=== PATIENT | female | born 1965 | race Caucasian/White ===

== ENCOUNTER 2016-05-21 15:41 | Inpatient (IN) | payer OTHER ==
--- NOTE | ~2016-05-21 | CN ---
Consultation Report [facility] [address] [place]. [address] NAME: FLORENCIO FINK : 63 STATUS : ADM IN [facility]#: [id number] AGE: 50 ADM/REG DATE : 05/21/16 MR#: [id number] REPORT SERV DATE: 05/24/16 DICTATED BY: BROOKS CHAPMAN DATE: 05/24/16 REPORT STATUS : Draft TRANSCRIBED BY: MODL DATE: 05/24/16 CONSULTATION DATE OF CONSULTATION: 05/22/2016 REASON FOR CONSULTATION: Right hydronephrosis. HISTORY OF PRESENT ILLNESS: Mrs. Fink is a 50-year-old female with a history of appendiceal cancer, status post exploratory surgery in 2013. She underwent adjuvant chemotherapy for this as well. She was then found to have a large right-sided ovarian mass with fibroids. There were initial plans to undergo surgery at an outside facility. The patient was admitted to our hospital with nausea and vomiting. A repeat CT scan demonstrated this ovarian mass as well as right hydronephrosis. She is here to undergo a right ovarian biopsy in the near future, and I have been asked to consult given her hydronephrosis. She has a history of stones in the past. PAST MEDICAL HISTORY: Appendiceal cancer and nephrolithiasis. PAST SURGICAL HISTORY: Appendectomy and cholecystectomy. FAMILY HISTORY: Negative for GI or malignancies. SOCIAL HISTORY: No alcohol or drugs. She is a current smoker. ALLERGIES: SHE IS ALLERGIC TO PENICILLIN. MEDICATIONS: Reviewed and listed in the chart. REVIEW OF SYSTEMS: A 12-point review of systems was performed. Pertinent positives are listed in the HPI. PHYSICAL EXAMINATION: VITAL SIGNS: Temperature is 98.0, pulse 99, blood pressure is 157/81, saturating 100% on room air. GENERAL: She is in no acute distress. She appears her stated age. HEENT: Head is normocephalic and atraumatic. LUNGS: Breathing is nonlabored. She is not in respiratory distress. CARDIAC: Pulse is regular in rate and rhythm. ABDOMEN: Soft, nontender, nondistended. She has a mild right CVA tenderness, and she has no left CVA tenderness. : She has normal external genitalia. NEUROLOGIC: She is alert and oriented x3. LABORATORY DATA: Her white count is 6.7, hemoglobin 12.4, creatinine is 1.13. Urinalysis is Consultation Report [facility] [address] [place]. [address] NAME: FLORENCIO FINK : 63 STATUS : ADM IN PAT#: [id number] AGE: 50 ADM/REG DATE : 05/21/16 MR#: [id number] REPORT SERV DATE: 05/24/16 DICTATED BY: BROOKS CHAPMAN DATE: 05/24/16 REPORT STATUS : Draft TRANSCRIBED BY: YARA DATE: 05/24/16 negative for infection. IMAGING: CT scan of the abdomen and pelvis with contrast was personally reviewed and interpreted by myself. She has a large right ovarian mass. She has right hydronephrosis with a transition point above the ureter in the pelvis. ASSESSMENT AND PLAN: Ms. Fink has right hydronephrosis due to extrinsic compression from an ovarian mass. If this is an appendiceal tumor, she will likely need to have chemotherapy, in which case we will place a stent in order to protect her kidney during this time. If it is an ovarian primary and the plan is for resection, then we can address her hydronephrosis with either ureterolysis or reimplantation at the time of operation. Regardless, we will plan on placing a stent in the near future to protect her kidney while we work through what will be the best treatment strategy for this woman. Thank you for this consultation. CAROL/YARA Brooks Chapman MD / [id number] CC: MD Salazar Maya Patricia L
--- NOTE | ~2016-05-21 | CN ---
Consultation Report [facility] [address] [facility] [place]. [address] NAME: FLORENCIO FINK : 63 STATUS : ADM IN [facility]#: [id number] AGE: 50 ADM/REG DATE : 05/21/16 MR#: [id number] REPORT SERV DATE: 05/23/16 DICTATED BY: KRISTEN MARTINO DATE: 05/22/16 REPORT STATUS : Draft TRANSCRIBED BY: MODL DATE: 05/22/16 DATE OF CONSULTATION: 05/22/2016 REFERRING PHYSICIAN: Dr. Edson Alejandre. CONSULTING PHYSICIAN: Dr. Kristen Martino. CONSULT: Regarding abdominal pain, vomiting, possible small-bowel obstruction. HISTORY OF PRESENT ILLNESS: This is a 50-year-old female who underwent a right hemicolectomy by Dr. Martino in 09/2013 for an appendiceal carcinoma. Apparently, also she subsequently had chemotherapy for that. Per the patient, she had negative tumor markers in March. However, presented to the office of Dr. Alejandre on 05/21 with complaint of a large exophytic fibroid noted on CT that was done in April, but also she was complaining of severe abdominal pain, worse in the right lower quadrant as well as nausea and vomiting and decreased appetite and said that her symptoms had been ongoing for approximately 3 months. However, over the past week prior to presentation, they had increased in intensity. She had been previously admitted to the hospital in April of this year with the same symptoms and had the CT scan, which revealed the fibroid uterus and ovarian cyst and then a question of a possible partial small-bowel obstruction at that time. She was evaluated by Dr. Silva at that admission in the hospital for 4 days, but subsequently resolved and sent home. PAST MEDICAL HISTORY: 1. Small bowel resection. 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 2. Fibroids. SURGICAL HISTORY: Per past medical history as well as has had a cholecystectomy. MEDICATIONS: Tramadol and gabapentin. ALLERGIES: PENICILLIN CAUSES ANAPHYLAXIS. REVIEW OF SYSTEMS: A comprehensive review of systems was performed and was negative except as noted in the HPI. SOCIAL HISTORY: The patient is a former smoker and denies any alcohol or recreational street drugs. PHYSICAL EXAMINATION: VITAL SIGNS: Pulse 104, blood pressure 130/79, respirations 16, saturating 98% on room air, temperature 97.8. GENERAL: Well-developed, well-nourished female, in no acute distress. HEENT: Normocephalic, atraumatic. Pupils equal, round, reactive to light. Extraocular movements and cranial nerves 2 through 12 are grossly intact. Her nares are patent. Mucous membranes are moist. There is no obvious obstruction of her oropharynx. Consultation Report [facility] [id number] [place]. [address] NAME: FLORENCIO FINK : 63 STATUS : ADM IN PAT#: [id number] AGE: 50 ADM/REG DATE : 05/21/16 MR#: [id number] REPORT SERV DATE: 05/23/16 DICTATED BY: KRISTEN MARTINO DATE: 05/22/16 REPORT STATUS : Draft TRANSCRIBED BY: YARA DATE: 05/22/16 NECK: Supple. Trachea is midline. CARDIOVASCULAR: She is a little bit tachycardic, but with regular rhythm. No murmurs, rubs, or gallops. LUNGS: Clear to auscultation bilaterally. No rhonchi, no wheeze. ABDOMEN: Soft and slightly doughy. It is mildly distended. She is tender in the right lower quadrant. No rebound. She does not have diffuse peritonitis or focal peritonitis whatsoever. EXTREMITIES: The patient is moving all 4 extremities equally. There are no focal neurological defects. LABS: White blood cells 6.7, hemoglobin 12.4, hematocrit 36.8, platelets of 292. Sodium 141, potassium 3.8, chloride 106, CO2 of 28, BUN 13, creatinine 1.13, glucose 76, calcium 10.9. Total protein 6.5, albumin 3.4, ALT 58, AST 33, alkaline phosphatase 148, T-bilirubin 148. A CT scan essentially shows increased density with the omentum suspicious for carcinomatosis, bowel loops that are prominent, but no definite obstruction on today's exam. Additionally, there is moderately severe right hydronephrosis since the previous study in April. Her right ureter is dilated throughout its course into the pelvis, are obscured due to the large uterus and large right ovarian cyst. ASSESSMENT AND PLAN: This is a 50-year-old female with a history of appendiceal carcinoma, who now appears to likely have a recurrence as well as a right hydroureter and obstruction. She is currently tolerating liquids and does not have any evidence of a small-bowel obstruction in terms of her clinical exam. At this point, we recommend Urology for the blocked ureter as well as evaluation by Oncology for a PET scan versus next step in treatment for what is suspected to be carcinomatosis. No surgical intervention is planned at this time. Thank you for the consult. DICTATED BY: Kelsey La MD SE/YARA Kristen Martino M.D. / [id number] CC: Michele Harris M.D. Coleman Arnold, M.D.
--- NOTE | ~2016-05-21 | HP ---
History And Physical [facility] [id number] [place]. [address] NAME: FLORENCIO FINK : 63 STATUS : ADM IN [facility]#: [id number] AGE: 50 ADM/REG DATE : 05/21/16 MR#: [id number] REPORT SERV DATE: 05/23/16 DICTATED BY: GUADALUPE DAN DATE: 05/21/16 REPORT STATUS : Draft TRANSCRIBED BY: MODL DATE: 05/21/16 DATE OF ADMISSION: 03/05/2016 HISTORY OF PRESENT ILLNESS: This is a 50-year-old female, who was diagnosed with appendiceal cancer in 09/2013. She underwent surgery for that cancer and also underwent chemotherapy. She presented to our office today with a complaint of a large exophytic fibroid that measured 5.5 cm and a right ovarian cyst that measures 3.2 cm that was noted on a CT scan that was done in 04/2016. The patient today complains of severe abdominal pain that is worse in the right lower quadrant as well as nausea and vomiting and a decreased appetite. The patient states these symptoms have been ongoing for the past three months. However, over the past week and today, they have increased in intensity. The patient denies any fever or chills. In 04/2016, she was admitted to the hospital for the same symptoms, a CT scan that revealed her fibroid uterus and the right ovarian cyst, also revealed a possible partial small bowel obstruction with fluid distended loops of mid small bowel and the small bowel distended with inspissated stool-like material in the left anterior pelvis at the level of small bowel anastomosis up to 4.6 cm in diameter. The patient states that she was evaluated by Dr. Silva at that time and was hospitalized for approximately four days. PAST MEDICAL HISTORY: Significant for the above-mentioned appendiceal cancer. PAST SURGICAL HISTORY: Appendectomy and her gallbladder was removed, cholecystectomy. FAMILY HISTORY: Negative for GI or malignancies. SOCIAL HISTORY: The patient denies any alcohol or illicit drug use. States she does smoke cigarettes on occasion. ALLERGIES: STATES SHE HAS ALLERGIES TO PENICILLIN. REVIEW OF SYSTEMS: As indicated in the HPI. PHYSICAL EXAMINATION: GENERAL: She is alert and oriented x3. She does appear to have some distress related to her abdominal pain. She is unable to sit still. She does appear weak. LUNGS: Clear to auscultation bilaterally. HEART: Regular rate and rhythm. ABDOMEN: Soft. She has severe tenderness to the right lower quadrant. EXTREMITIES: Bilateral lower extremities are with no swelling. Pulses +2. ASSESSMENT AND PLAN: This is a 50-year-old female with a history of appendiceal cancer, now with a fibroid uterus and a right ovarian cyst, who is having acute abdominal pain, nausea, and vomiting with a recent history of a partial small bowel obstruction. We will admit the patient, obtain abdominal x-ray, also obtain labs, and start on IV fluids as well as IV antiemetics and IV pain medication. Further recommendations after the above tests are completed. History And Physical [address] [address] NAME: FLORENCIO FINK : 63 STATUS : ADM IN [facility]#: [id number] AGE: 50 ADM/REG DATE : 05/21/16 MR#: [id number] REPORT SERV DATE: 05/23/16 DICTATED BY: GUADALUPE DAN DATE: 05/21/16 REPORT STATUS : Draft TRANSCRIBED BY: YARA DATE: 05/21/16 ONEAL/YARA Guadalupe Dan NP / [id number]
--- NOTE | ~2016-05-21 | DS ---
Discharge Summary [facility] [address] [place]. [address] NAME: FLORENCIO FINK : 63 STATUS : DIS IN PAT#: [id number] AGE: 50 ADM/REG DATE : 05/21/16 MR#: [id number] REPORT SERV DATE: 06/03/16 DICTATED BY: LUIS RICHARDSON DATE: 06/03/16 REPORT STATUS : Draft TRANSCRIBED BY: MODL DATE: 06/03/16 Data Collection from hospitalization DISCHARGE DIAGNOSES: 1. Metastatic adenocarcinoma consistent with appendix primary. 2. History of appendiceal cancer. 3. Tobacco use. 4. History of nephrolithiasis. CONSULTATIONS: 1. Sky Hernandez M.D. 2. Ángel Hilton M.D. 3. Dallin Chapman MD. 4. Dharmesh Reynoso M.D. PROCEDURES PERFORMED: 1. Cystourethroscopy, right retrograde pyelogram, and right ureteral stent placement on 05/24/2016. 2. CT scan of the abdomen and pelvis with contrast on 05/21/2016. 3. Biopsy of the abdomen for omental mass on 05/22/2016. PATHOLOGY: Omentum CT-guided biopsies - metastatic adenocarcinoma consistent with appendix primary. See comment. MEDICATIONS: ProAir two puffs via inhaler as needed, Lumigan one drop at bedtime, vitamin D 5000 units daily, vitamin B12 2500 mcg daily, Pepcid 20 mg daily as needed, Neurontin 300 mg three times a day, milk of magnesia 30 mL daily as needed, fish oil 1200 mg daily, Endocet one to two tablets every four hours as needed, Phenergan 25 mg every four hours as needed, and Ultram 50 mg every four hours as needed. CONDITION AT DISCHARGE: Stable. DISPOSITION: The patient was discharged home on a regular diet with activities as instructed. She would follow up with Dr. Edson Alejandre as needed. She would follow up with Dr. Dallin Chapman on 06/05/[address] Dharmesh Reynoso following discharge as instructed. HOSPITAL COURSE: This is a 50-year-old female who had been diagnosed with appendiceal cancer in 2013. She underwent surgery for that cancer and underwent chemotherapy. She presented to our office complaining of a large exophytic fibroid that measured 5.5 cm and a right ovarian cyst that measured 3.2 cm that was found on CT scan in April of 2016. On the day of this admission, the patient complained of severe abdominal pain that was worse in the right lower quadrant as well as nausea and vomiting and a decreased appetite. The patient said that these symptoms had been ongoing for the past three months. Over the past week and on the day of this admission, they increased density in intensity. She had been admitted in April of 2016 with the same symptoms and a CT scan revealed her fibroid uterus and the right ovarian cyst, it also revealed a possible partial small bowel obstruction with fluid distended loops of mid small bowel and small bowel distended with inspissated stool-like Discharge [address] [place]. [address] NAME: FLORENCIO FINK : 63 STATUS : DIS IN PAT#: [id number] AGE: 50 ADM/REG DATE : 05/21/16 MR#: [id number] REPORT SERV DATE: 06/03/16 DICTATED BY: LUIS RICHARDSON DATE: 06/03/16 REPORT STATUS : Draft TRANSCRIBED BY: YARA DATE: 06/03/16 material in the left anterior pelvis at the level of the small bowel anastomosis up to 4.6 cm in diameter. The patient said she had been evaluated by Dr. Silva at that time and had been hospitalized for approximately four days. She was admitted to the hospital at this time for further evaluation and treatment. Upon admission, IV fluids were started as well as IV antiemetics and IV pain medication. CT scan of the abdomen and pelvis with contrast was performed. The following day, she was seen by Dr. Sky Hernandez regarding the abdominal pain, vomiting, and possible small bowel obstruction. Her current CT scan essentially showed increased density with the omentum suspicious for carcinomatosis, bowel loops that were prominent, but no definite obstruction. Additionally, there was moderately severe right hydronephrosis since the previous study in April. Her right ureter was dilated throughout its course into the pelvis and was obscured due to the large uterus and large right ovarian cyst. She was currently tolerating liquids. She did not have any evidence of small bowel obstruction in terms of her clinical exam. No surgical intervention was planned at this time. She was also seen by Dr. Dallin Chapman regarding right hydronephrosis. It was felt that she may need to undergo a right ovarian biopsy in the near future. He had been asked to see the patient given her hydronephrosis. She does have a history of stones in the past. Urinalysis was negative for infection. Creatinine level was 1.13. The patient has right hydronephrosis due to extrinsic compression from an ovarian mass. If this was an appendiceal tumor, she would likely need to have chemotherapy in which case a stent would be placed in order to protect the kidney during that time. If it was an ovarian primary and the plan was for resection, we could address her hydronephrosis with either ureterolithiasis or reimplantation at the time of operation. Regardless, we would plan on placing a stent in the near future to protect her kidney while we work through what would be the best treatment strategy for this patient. She was also seen by Dr. Dharmesh Reynoso. The patient has a history of resected appendiceal cancer. She had undergone adjuvant FOLFOX chemotherapy. She has had several admissions here with nausea, vomiting, and abdominal pain. It was felt that this was probable recurrence. Tumor markers were going to be checked. A biopsy of the abdominal mass was going to be performed. She underwent biopsy of the abdomen for omental mass. On 05/23/2016, she was tolerating her diet. She was passing flatus. She did have some nausea. She did have some anxiety and depression. She was tolerating liquids. She was seen by Dr. Ángel Hilton. The role of palliative care and symptom support and added measure support for the patient were reviewed, an additional support would be rendered as needed. He spoke with her about things that were clearly stressing her at this moment and challenged her to look at whether or not these are things that she could actually worry about and accomplished sensing with. She was appropriately scared about her impending diagnosis that was probably malignant. It was felt that surgical options at this point would be rather limited as they were going to be back on chemotherapy with a rather uncertain prognosis. She was actually having a grief reactions, which was highly appropriate for her age and situation and previous history. He did not believe she was depressed and he did not think she would need to be on an antidepressant at this time. On 05/24/2016, she was taken to the operating room by Dr. Dallin Chapman where she underwent the above-mentioned procedure. She tolerated this well, and there were no complications. Discharge Summary [facility] [address] [place]. [address] NAME: FLORENCIO FINK : 63 STATUS : DIS IN PAT#: [id number] AGE: 50 ADM/REG DATE : 05/21/16 MR#: [id number] REPORT SERV DATE: 06/03/16 DICTATED BY: LUIS RICHARDSON DATE: 06/03/16 REPORT STATUS : Draft TRANSCRIBED BY: MODL DATE: 06/03/16 On postop day #1, she said she was feeling well. She did have some flank pain with stent. Creatinine level was 1.2. Her pathology results were consistent with adenocarcinoma. Pain medications were adjusted. She was tolerating some oral intake. We encouraged her to ambulate. She had some urinary frequency, but otherwise, is tolerating the stent. Discharge planning was performed. On 05/26/2016, she felt well. Her pain was controlled. Her vital signs were within normal limits. Discharge instructions were given. Due to her improved and stable condition, she was discharged home with the above-stated instructions. Information collected by: Layne Champagne I submit the above information as my discharge summary. TG/YARA Luis Richardson MD / [id number] CC: Michele Harris PATRICIA L Coleman Arnold, M.D. Derek W Holland, M.D. Robert Warren Goldmann, M.D. Jeffrey K. Mullins, MD
--- NOTE | ~2016-05-21 | CN ---
Consultation Report [facility] [address] [place]. [address] NAME: PRICILA FINK : 63 STATUS : ADM IN PAT#: [id number] AGE: 50 ADM/REG DATE : 05/21/16 MR#: [id number] REPORT SERV DATE: 05/23/16 DICTATED BY: DWIGHT HILTON DATE: 05/23/16 REPORT STATUS : Draft TRANSCRIBED BY: MODL DATE: 05/23/16 PALLIATIVE CARE CONSULT DATE OF CONSULTATION: 05/23/2016 ALLERGIES: LISTED PENICILLIN. THE REACTION WAS NOT SPECIFIED. REASON FOR CONSULTATION: Palliative care support in a young female with possible recurrent abdominal cancer. 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 Starting last , she began to get some increasing abdominal pain and cramping with which she felt was out of character. She presented to the emergency room with signs and symptoms of vomiting, recurrent abdominal pain, and possible small bowel obstruction. The findings according to Dr. Swanson's evaluation were suspicious for a possible oncological recurrence. 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 Yesterday, after being admitted, hydrated and stabilized, she went for a biopsy which is currently pending. We are asked to see the patient in regard to ongoing cancer support should her cancer diagnosis be reconfirmed. Additional findings include hydroureter on the right and, increasing creatinine possibly from a recurrent stone syndrome or possibly from uterine enlargement. She does have a fairly substantial fibroids noted. A fair amount of her pain really has been difficult to differentiate between abdominal, omental, and gynecological. PAST MEDICAL HISTORY: Includes fibroids and kidney stones. FAMILY HISTORY: Remarkable for her biological father dying of cancer. Details were not sought at this time. SOCIAL HISTORY: The patient is currently living with her mother and stepfather. There has been some problems with the home that she and her second were refurbishing and the is currently out of town with his children. They do maintain a phone relationship on an active basis. I am unaware of how often he is in town. She has a 24-year-old son from her 1st marriage who is available. She professes a strong Sabianist yaima. She is remarried as I mentioned and does have step grandchildren with whom she has a holiday and special occasion type of relationship. She used to smoke cigarettes probably on the order of 15-20 pack years and has since discontinued this. Rare alcohol use. No substance abuse. She is currently residing with her mother and stepfather. Mother, Harmony, who goes by the name of "Rosy" is at the bedside. Consultation Report [address] [place]. 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 She is previously accessed [employer] for assistance in her care in 2013 and is reexploring that at this time. REVIEW OF SYSTEMS: GENERAL: Includes a 5-pound weight loss over the last month. She does have some mild malaise. HEENT: Review except for runny nose is negative. CARDIOVASCULAR: Review is negative. RESPIRATORY: Review is negative. GI: Includes abdominal pain, nausea, and vomiting. She has had some intermittent constipation and intermittent bowel dysfunction with several-day episodes between bowel movements. She does have ongoing abdominal pain and cramping and particularly in the lower abdominal area. : She denies dysuria at this time, although does say she had kidney stones in the past. MUSCULOSKELETAL: Review is negative. NEUROLOGICAL: Review is negative. PSYCHIATRIC: The patient is sad, anxious, and very concerned about her current potential diagnosis of recurrent malignancy. She, nevertheless, tells me that she is maintaining an optimistic view of things, she is conversing very actively with her mother about how she feels about things and they have been trying together. She does relate that occasionally while watching TV, she is having some overt laughter over some of the situation that is on TV. Her primary pain syndrome is that of gynecological versus abdominal pain and she is currently receiving opioids for this with moderate control. PHYSICAL EXAMINATION: GENERAL: Her current pain, she rates as 5/10, is rated as 6 to 7/10 in the charting. She is getting morphine 2 mg every 1-2 hours plus oral agents. VITAL SIGNS: Blood pressure 157/81, pulse 88 and regular, respirations 16, temperature 98, oxygen saturation 100% on room air. Significant laboratory data includes a creatinine of 1.16 which is up from 0.8. CONSTITUTIONAL: A well-developed, well-nourished, white female. BMI 24.4. She is in mild distress. HEENT: Negative. CARDIOVASCULAR: S1, S2 without murmur. Pulses symmetrical. RESPIRATIONS: Clear. GI: The patient has had a recent biopsy done and is fairly tender and I did not palpate her abdomen. She does have bowel sounds present and she does report that she is passing some gas. : Exam is negative. There is no costovertebral angle tenderness. Consultation Report [address] [place]. [address] NAME: PRICILA FINK : 63 STATUS : ADM IN [facility]#: [id number] AGE: 50 ADM/REG DATE : 05/21/16 MR#: [id number] REPORT SERV DATE: 05/23/16 DICTATED BY: DWIGHT HILTON DATE: 05/23/16 REPORT STATUS : Draft TRANSCRIBED BY: YARA DATE: 05/23/16 MUSCULOSKELETAL: Negative. NEURO: Negative. PSYCHIATRIC: The patient is awake, alert, appropriate, tearful. SKIN: Warm and dry. IMPRESSION/PLAN/RECOMMENDATION: The role of palliative care, the symptom support and added measure support for the patient were reviewed and, additional support will be certainly rendered as needed. I have highlighted for her what I think are some of the things that are clearly stressing her at this moment and challenged her to look at whether or not these are things that she could actually worry about and accomplish something with. She is appropriately scared about her impending diagnosis that is probably malignant. What surgical options would be at this point, I think are going to be rather limited and they were going to be back on chemotherapy with a rather uncertain prognosis. Given her gynecological issues, her uterine enlargement and her fibroids with her hydroureter, to determine whether this is an oncological or a mechanical problem needs to be clarified as her creatinine is climbing a bit. The patient is actually having a grief reaction which is highly appropriate for her age situation and previous history. I do not believe she is depressed and I do not think she needs to be on antidepressants at this time. I think once we get a tissue diagnosis, we will sit down a little bit further and discuss what her goals for management and symptom control are. Thank you for asking us to see your patient. We will follow. FALGUNI/YARA Dwight Hilton M.D. / [id number] CC: Michele Harris Patricia L
--- NOTE | ~2016-05-21 | OP ---
Record Of Operation [facility] [address] [facility] [place]. [address] NAME: FLORENCIO FINK : 63 STATUS : ADM IN [facility]#: [id number] AGE: 50 ADM/REG DATE : 05/21/16 MR#: [id number] REPORT SERV DATE: 05/24/16 DICTATED BY: BROOKS CHAPMAN DATE: 05/24/16 REPORT STATUS : Draft TRANSCRIBED BY: MODL DATE: 05/24/16 DATE OF PROCEDURE: 05/24/2016 SURGEON: Brooks Chapman MD. TITLE OF OPERATION: Cystourethroscopy, right retrograde pyelogram, right ureteral stent placement. PREOPERATIVE DIAGNOSIS: Right hydronephrosis. POSTOPERATIVE DIAGNOSIS: Right hydronephrosis. INDICATIONS: Ms. Fink is a 50-year-old female, with right hydronephrosis, due to extrinsic compression from ovarian mass. The mass was biopsied and pathology is pending. She is undergoing stent placement to protect her kidneys, and evaluate pathology. ANESTHESIA: General. COMPLICATIONS: None. IMPLANT: A 6 x 24 right ureteral stent. NARRATIVE: The patient was brought to the operating room, identified by her wristband. General anesthesia was induced and Levaquin was given for preoperative antibiotics. She was placed in dorsal lithotomy position, prepped and draped in sterile fashion. A cystoscope was placed to her urethra into her bladder. The bladder was inspected. The trigone was slightly distorted. The right ureteral orifice was identified. It was cannulated with a Sensor wire. A 5-Indonesian open-ended catheter was placed over the wire to the distal ureter. A retrograde pyelogram was shot, which showed narrowing of the ureter in the true pelvis. There was proximal hydroureteronephrosis with ureteral tortuosity. A Sensor wire was easily advanced past the area of obstruction into the renal pelvis under fluoroscopic guidance. A 6 x 24 ureteral stent was placed in standard fashion. The proximal coil was in the renal pelvis under fluoroscopy. The distal coil was in the bladder under direct vision. The bladder was drained. The patient was awoken from anesthesia and transferred to recovery room in stable condition. CAROL/YARA Brooks Chapman MD / [id number] CC: Record Of Operation [address] [address] NAME: FLORENCIO FINK : 63 STATUS : ADM IN PAT#: [id number] AGE: 50 ADM/REG DATE : 05/21/16 MR#: [id number] REPORT SERV DATE: 05/24/16 DICTATED BY: BROOKS CHAPMAN DATE: 05/24/16 REPORT STATUS : Draft TRANSCRIBED BY: MODL DATE: 05/24/16 Michele Harris PATRICIA L
[~2016-05-21 15:41] MED LIST: D 5000 PO; FISH OIL1200 MG PO; LUMIGAN OPH; NEUR300 PO; NORCO1 TA1 PO; VITAMIN B-122500 MCG PO; ZANTAC 75 PO; ZOFRAN4 PO
[2016-05-21] MEDS ORDERED: ULTRAM50 PO (16:20)
[2016-05-21] MEDS ORDERED: MOMUD PO (16:21)
[2016-05-21] MEDS ORDERED: PR25 PO (16:24)
[2016-05-21] MEDS ORDERED: PROAIR HFA INH (16:24)
[2016-05-21] MEDS ORDERED: PEP20 PO (16:24)
[2016-05-21 21:00] LABS: CREATININE 1.04 MG/DL (0.55-1.02)
[2016-05-22 05:14] LABS: BASOPHILS 0.3 %; BASOPHILS ABSOLUTE 0.02 10/3/uL (0.0-0.16); EOSINOPHILS 1.9 %; EOSINOPHILS ABSOLUTE 0.13 10/3/uL (0.0-0.53); HEMATOCRIT 36.8 % (36.0-48.0); HEMOGLOBIN 12.4 g/dL (12.0-16.0); IMMATURE GRANULOCYTES 0.1 %; IMMATURE GRANULOCYTES ABSOLUTE 0.01 10/3/uL (0.0-0.11); LYMPHOCYTES 37.2 %; LYMPHOCYTES ABSOLUTE 2.48 10/3/uL (0.67-4.30); MEAN CORPUS HGB CONC 33.7 g/dL (32.0-36.0); MEAN CORPUSCULAR HEMOGLOB 31.4 pg (26.0-34.0); MEAN CORPUSCULAR VOLUME 93.2 fL (80-100); MEAN PLATELET VOLUME 10.2 fL (9.2-13.0); MONOCYTES 11.4 %; MONOCYTES ABSOLUTE 0.76 10/3/uL (0.21-1.20); NEUTROPHILS 49.1 %; NEUTROPHILS ABSOLUTE 3.27 10/3/uL (2.02-8.40); PLATELET COUNT 292 10/3/uL (150-400); RBC DISTRIBUTION WIDTH 12.2 % (12.0-16.0); RED CELL COUNT 3.95 10/6/uL (4.0-5.6); WHITE BLOOD CELLS 6.7 10/3/uL (4.5-10.5)
[2016-05-22 05:15] LABS: MANUAL DIFF NO %
[2016-05-22 05:25] LABS: A/G RATIO 1.1 (0.7-1.9); ALBUMIN 3.4 G/DL (3.5-5.0); CALCIUM, SERUM 10.9 MG/DL (8.5-10.4); CHLORIDE, SERUM 106 MMOL/L (96-112); CO2 (CARBON DIOXIDE) 28 MMOL/L (24-34); CREATININE 1.13 MG/DL (0.55-1.02); GFR AFRICAN AMERICAN 65 ML/MIN (>=60); GFR NON AFRICAN AMERICAN 56 ML/MIN (>=60); GLOBULIN 3.1 G/DL (2.5-4.1); GLUCOSE, SERUM 76 MG/DL (60-99); POTASSIUM, SERUM 3.8 MMOL/L (3.5-5.3); SGOT(AST) 33 U/L (5-40); SGPT(ALT) 58 U/L (5-65); SODIUM, SERUM 144 MMOL/L (135-148); TOTAL BILIRUBIN 0.7 MG/DL (0-1.2); TOTAL PROTEIN 6.5 G/DL (6.0-8.5)
[2016-05-22 05:30] LABS: ALKALINE PHOSPHATASE 148 U/L (45-117); BUN (BLOOD UREA NITROGEN) 13 MG/DL (6-23)
[2016-05-22 11:36] LABS: INTERNATIONAL NORMAL RATI 1.2 UNITS (-); PARTIAL THROMBO TIME 31.8 SEC (22.5-37.2); PROTIME (NOT ORD) 15.1 SEC (12.0-14.5)
[2016-05-22 11:55] LABS: CA 125 II 53.7 U/ML (< 35.0)
[2016-05-22 11:56] LABS: CEA 0.8 NG/ML
[2016-05-22 19:21] LABS: WBC (NOT ORDERED) (RFLEX) 0 (0-5)
[2016-05-22 19:59] LABS: ASCORBIC ACID (UR NOT ORDER) NEG (NEG); BILIRUBIN, URINE NEGATIVE (NEG); KETONE, URINE 80 MG/DL (NEG); LEUKOCYTE ESTERASE(NOT OR NEG (NEG)
[2016-05-23 05:34] LABS: BASOPHILS 0.4 %; BASOPHILS ABSOLUTE 0.02 10/3/uL (0.0-0.16); EOSINOPHILS 4.1 %; EOSINOPHILS ABSOLUTE 0.19 10/3/uL (0.0-0.53); HEMOGLOBIN 10.8 g/dL (12.0-16.0); IMMATURE GRANULOCYTES 0.2 %; IMMATURE GRANULOCYTES ABSOLUTE 0.01 10/3/uL (0.0-0.11); LYMPHOCYTES 33.3 %; LYMPHOCYTES ABSOLUTE 1.53 10/3/uL (0.67-4.30); MEAN CORPUS HGB CONC 34.6 g/dL (32.0-36.0); MEAN CORPUSCULAR HEMOGLOB 32.9 pg (26.0-34.0); MEAN CORPUSCULAR VOLUME 95.1 fL (80-100); MEAN PLATELET VOLUME 10.3 fL (9.2-13.0); MONOCYTES 12.9 %; MONOCYTES ABSOLUTE 0.59 10/3/uL (0.21-1.20); NEUTROPHILS 49.1 %; NEUTROPHILS ABSOLUTE 2.25 10/3/uL (2.02-8.40); PLATELET COUNT 236 10/3/uL (150-400); RBC DISTRIBUTION WIDTH 12.3 % (12.0-16.0); RED CELL COUNT 3.28 10/6/uL (4.0-5.6); WHITE BLOOD CELLS 4.6 10/3/uL (4.5-10.5)
[2016-05-23 05:37] LABS: HEMATOCRIT 31.2 % (36.0-48.0); MANUAL DIFF NO %
[2016-05-23 08:30] LABS: A/G RATIO 1.1 (0.7-1.9); ALBUMIN 3.4 G/DL (3.5-5.0); ALKALINE PHOSPHATASE 137 U/L (45-117); CALCIUM, SERUM 10.3 MG/DL (8.5-10.4); CHLORIDE, SERUM 114 MMOL/L (96-112); CREATININE 1.16 MG/DL (0.55-1.02); GFR AFRICAN AMERICAN 63 ML/MIN (>=60); GFR NON AFRICAN AMERICAN 54 ML/MIN (>=60); GLOBULIN 3.1 G/DL (2.5-4.1); POTASSIUM, SERUM 3.6 MMOL/L (3.5-5.3); SGOT(AST) 27 U/L (5-40); SGPT(ALT) 47 U/L (5-65); SODIUM, SERUM 144 MMOL/L (135-148); TOTAL BILIRUBIN 0.5 MG/DL (0-1.2); TOTAL PROTEIN 6.5 G/DL (6.0-8.5)
[2016-05-23 08:32] LABS: BUN (BLOOD UREA NITROGEN) 7 MG/DL (6-23); CO2 (CARBON DIOXIDE) 22 MMOL/L (24-34); GLUCOSE, SERUM 109 MG/DL (60-99)
[2016-05-24 05:40] LABS: BASOPHILS 0.4 %; BASOPHILS ABSOLUTE 0.02 10/3/uL (0.0-0.16); EOSINOPHILS 3.2 %; EOSINOPHILS ABSOLUTE 0.16 10/3/uL (0.0-0.53); HEMOGLOBIN 11.7 g/dL (12.0-16.0); IMMATURE GRANULOCYTES 0.2 %; IMMATURE GRANULOCYTES ABSOLUTE 0.01 10/3/uL (0.0-0.11); LYMPHOCYTES 40.4 %; LYMPHOCYTES ABSOLUTE 2.05 10/3/uL (0.67-4.30); MEAN CORPUS HGB CONC 33.6 g/dL (32.0-36.0); MEAN CORPUSCULAR HEMOGLOB 32.1 pg (26.0-34.0); MEAN CORPUSCULAR VOLUME 95.6 fL (80-100); MEAN PLATELET VOLUME 10.3 fL (9.2-13.0); MONOCYTES 6.3 %; MONOCYTES ABSOLUTE 0.32 10/3/uL (0.21-1.20); NEUTROPHILS 49.5 %; NEUTROPHILS ABSOLUTE 2.51 10/3/uL (2.02-8.40); PLATELET COUNT 272 10/3/uL (150-400); RBC DISTRIBUTION WIDTH 12.4 % (12.0-16.0); RED CELL COUNT 3.64 10/6/uL (4.0-5.6); WHITE BLOOD CELLS 5.1 10/3/uL (4.5-10.5)
[2016-05-24 05:41] LABS: HEMATOCRIT 34.8 % (36.0-48.0); MANUAL DIFF NO %
[2016-05-24 05:42] LABS: A/G RATIO 1.1 (0.7-1.9); ALBUMIN 3.1 G/DL (3.5-5.0); ALKALINE PHOSPHATASE 128 U/L (45-117); BUN (BLOOD UREA NITROGEN) 5 MG/DL (6-23); CALCIUM, SERUM 10.1 MG/DL (8.5-10.4); CHLORIDE, SERUM 115 MMOL/L (96-112); CO2 (CARBON DIOXIDE) 26 MMOL/L (24-34); CREATININE 1.16 MG/DL (0.55-1.02); GFR AFRICAN AMERICAN 63 ML/MIN (>=60); GFR NON AFRICAN AMERICAN 54 ML/MIN (>=60); GLOBULIN 2.9 G/DL (2.5-4.1); POTASSIUM, SERUM 3.3 MMOL/L (3.5-5.3); SGOT(AST) 21 U/L (5-40); SGPT(ALT) 38 U/L (5-65); SODIUM, SERUM 148 MMOL/L (135-148); TOTAL BILIRUBIN 0.3 MG/DL (0-1.2)
[2016-05-24 05:45] LABS: GLUCOSE, SERUM 78 MG/DL (60-99)
[2016-05-25 06:57] LABS: BASOPHILS 0.1 %; BASOPHILS ABSOLUTE 0.01 10/3/uL (0.0-0.16); EOSINOPHILS 0.6 %; EOSINOPHILS ABSOLUTE 0.04 10/3/uL (0.0-0.53); HEMOGLOBIN 10.5 g/dL (12.0-16.0); IMMATURE GRANULOCYTES 0.1 %; IMMATURE GRANULOCYTES ABSOLUTE 0.01 10/3/uL (0.0-0.11); LYMPHOCYTES 19.8 %; LYMPHOCYTES ABSOLUTE 1.43 10/3/uL (0.67-4.30); MEAN CORPUS HGB CONC 34.4 g/dL (32.0-36.0); MEAN CORPUSCULAR HEMOGLOB 31.8 pg (26.0-34.0); MEAN PLATELET VOLUME 10.2 fL (9.2-13.0); MONOCYTES 9.8 %; MONOCYTES ABSOLUTE 0.71 10/3/uL (0.21-1.20); NEUTROPHILS 69.6 %; NEUTROPHILS ABSOLUTE 5.03 10/3/uL (2.02-8.40); PLATELET COUNT 271 10/3/uL (150-400); RBC DISTRIBUTION WIDTH 12.4 % (12.0-16.0)
[2016-05-25 06:58] LABS: HEMATOCRIT 30.5 % (36.0-48.0); MANUAL DIFF NO %; MEAN CORPUSCULAR VOLUME 92.4 fL (80-100); WHITE BLOOD CELLS 7.2 10/3/uL (4.5-10.5)
[2016-05-25 07:12] LABS: A/G RATIO 1.1 (0.7-1.9); BUN (BLOOD UREA NITROGEN) 5 MG/DL (6-23); CALCIUM, SERUM 10.6 MG/DL (8.5-10.4); CHLORIDE, SERUM 113 MMOL/L (96-112); CO2 (CARBON DIOXIDE) 24 MMOL/L (24-34); CREATININE 1.21 MG/DL (0.55-1.02); GFR AFRICAN AMERICAN 60 ML/MIN (>=60); GFR NON AFRICAN AMERICAN 52 ML/MIN (>=60); GLOBULIN 2.8 G/DL (2.5-4.1); POTASSIUM, SERUM 3.9 MMOL/L (3.5-5.3); SGOT(AST) 15 U/L (5-40); SGPT(ALT) 37 U/L (5-65); SODIUM, SERUM 144 MMOL/L (135-148); TOTAL BILIRUBIN 0.3 MG/DL (0-1.2); TOTAL PROTEIN 5.8 G/DL (6.0-8.5)
[2016-05-25 07:13] LABS: ALKALINE PHOSPHATASE 110 U/L (45-117); GLUCOSE, SERUM 113 MG/DL (60-99)
[2016-05-26 05:54] LABS: BASOPHILS 0.2 %; BASOPHILS ABSOLUTE 0.01 10/3/uL (0.0-0.16); EOSINOPHILS 3.5 %; EOSINOPHILS ABSOLUTE 0.21 10/3/uL (0.0-0.53); HEMATOCRIT 32.7 % (36.0-48.0); HEMOGLOBIN 11.1 g/dL (12.0-16.0); IMMATURE GRANULOCYTES 0.3 %; IMMATURE GRANULOCYTES ABSOLUTE 0.02 10/3/uL (0.0-0.11); LYMPHOCYTES 37.1 %; LYMPHOCYTES ABSOLUTE 2.24 10/3/uL (0.67-4.30); MEAN CORPUS HGB CONC 33.9 g/dL (32.0-36.0); MEAN CORPUSCULAR VOLUME 94.2 fL (80-100); MEAN PLATELET VOLUME 10.1 fL (9.2-13.0); MONOCYTES 8.3 %; NEUTROPHILS 50.6 %; NEUTROPHILS ABSOLUTE 3.06 10/3/uL (2.02-8.40); PLATELET COUNT 254 10/3/uL (150-400); RBC DISTRIBUTION WIDTH 12.6 % (12.0-16.0); RED CELL COUNT 3.47 10/6/uL (4.0-5.6)
[2016-05-26 06:07] LABS: MANUAL DIFF NO %
[2016-05-26 06:18] LABS: A/G RATIO 1.1 (0.7-1.9); ALKALINE PHOSPHATASE 105 U/L (45-117); BUN (BLOOD UREA NITROGEN) 8 MG/DL (6-23); CALCIUM, SERUM 10.3 MG/DL (8.5-10.4); CHLORIDE, SERUM 112 MMOL/L (96-112); CO2 (CARBON DIOXIDE) 23 MMOL/L (24-34); CREATININE 0.91 MG/DL (0.55-1.02); GFR AFRICAN AMERICAN 85 ML/MIN (>=60); GFR NON AFRICAN AMERICAN 73 ML/MIN (>=60); GLOBULIN 2.7 G/DL (2.5-4.1); GLUCOSE, SERUM 97 MG/DL (60-99); POTASSIUM, SERUM 3.5 MMOL/L (3.5-5.3); SGOT(AST) 12 U/L (5-40); SGPT(ALT) 32 U/L (5-65); SODIUM, SERUM 144 MMOL/L (135-148); TOTAL BILIRUBIN 0.3 MG/DL (0-1.2); TOTAL PROTEIN 5.7 G/DL (6.0-8.5)
[2016-05-26] MEDS ORDERED: ENDOCET1 TA3 PO (09:26)
== END 2016-05-26 17:59 | disposition home or self-care (01) | DRG 654 ==
LOC: 4EA 15:41
PROVIDERS: Nurse Practitioner Family; Obstetrics & Gynecology Gynecologic Oncology
PROC: 0DBS3ZX (ICD-10-PCS; principal; 2016-05-22)
PROC: 0T7B8DZ Dilation of Bladder with Intraluminal Device, Via Natural or Artificial Opening Endoscopic (ICD-10-PCS; 2016-05-24)
DX: N13.30 Unspecified hydronephrosis (principal); C18.1 Malignant neoplasm of appendix; F41.9 Anxiety disorder, unspecified; F32.9 Major depressive disorder, single episode, unspecified
CPT/HCPCS: 49180; 74020; 74177; 74420; 77012; 80053; 81001; 82378; 82565; 83735; 84260; 85025; 85610; 85730; 86304; 88305; 88333; 88341; 88342; A9270-GY; C1758; C2617; C9113; J2250; J2405; J2710; J3010; Q9967

== ENCOUNTER 2016-05-30 16:35 | Inpatient (IN) | payer OTHER ==
--- NOTE | ~2016-05-30 | DS ---
Discharge Summary [place] [address] [facility] [place]. [address] NAME: FLORENCIO FINK : 63 STATUS : DIS IN PAT#: [id number] AGE: 50 ADM/REG DATE : 05/30/16 MR#: [id number] REPORT SERV DATE: 06/13/16 DICTATED BY: BABS SHEEHAN DATE: 06/12/16 REPORT STATUS : Draft TRANSCRIBED BY: MODL DATE: 06/12/16 ADMISSION DATE: 05/30/2016 DISCHARGE DATE: 06/12/2016 DISCHARGE DIAGNOSES: 1. Metastatic appendiceal cancer. 2. Severe chronic pain secondary to above. 3. Intractable nausea and vomiting. 4. Opioid-induced constipation. 5. Hypercalcemia secondary to primary hyperparathyroidism, received Aredia and fluids. 6. History of nephrolithiasis. 7. Right ureteral stent. CONSULTATIONS: 1. Palliative Care, Dr. Hilton. 2. Surgery, Dr. Thompson. 3. Surgery, Dr. Hilton. IMAGING AND PROCEDURES: 1. CT abdomen and pelvis, 05/30/2016; impression, 8 x 6.5 cm mass associated with right adnexa. There is also a 4.9 x 4.4 cm right adnexal cyst. These findings have continued to increase in size on multiple examinations with dating back to 03/05/2016. Findings are considered to be suspicious for an ovarian neoplasm. 2. Pelvic ultrasound on 05/30/2016; impression, right adnexal mass and cyst as reported. Ovaries are not specifically visualized. No significant abnormalities otherwise. 3. Chest x-ray, 06/03/2016; impression, right Port-A-Cath tip is superimposed over the superior vena cava. Minimal linear bibasilar atelectasis. 4. Abdominal x-ray, 06/06/2016; impression, right ureteral stent. Surgical changes. Dilated small bowel which may represent small-bowel obstruction or ileus. 5. Small-bowel follow through, 06/07/2016; impression, numerous prominent loops of small intestines with no definite obstruction. 6. Port-A-Cath placement, 06/03/[address] Thompson. COURSE OF HOSPITAL STAY: Please refer to history and physical dictated by Dr. Jerald Parr on 05/30/2016 for complete admission details as well as consultation and interim notes. This patient is a 50-year-old female with the known above history, who presented to [facility]'s Emergency Room with severe abdominal pain and uncontrolled vomiting. 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 Pain was unable to be controlled. Palliative Care was consulted to see. Dr. Hilton was able to work with the patient and DUSTING AND BRUSHING MACHINE OPERATOR pump was discontinued. The patient at this time is on Duragesic, Dilaudid, and Percocet. The patient is still complaining of breakthrough pain. The patient has also had nausea and vomiting ongoing since admission. The patient is at this time on Phenergan and Zofran. The patient is still having complaints of nausea. After a long discussion with Dr. Hilton, myself, and the patient along with the patient's family, they are agreement for the patient to be discharged with [facility] for pain and Discharge Summary [address] [address] NAME: FLORENCIO FINK : 63 STATUS : DIS IN [facility]#: [id number] AGE: 50 ADM/REG DATE : 05/30/16 MR#: [id number] REPORT SERV DATE: 06/13/16 DICTATED BY: BABS SHEEHAN DATE: 06/12/16 REPORT STATUS : Draft TRANSCRIBED BY: YARA DATE: 06/12/16 nausea control. The patient will be discharged with [facility] this p.m. to be transferred to the hospice care center for further care. Home medication will be per hospice. Time spent for discharge has been greater than 45 minutes due to coordination with hospice nurse, housing case manager, and the patient's family. [facility]/RUBY[facility] Babs Sheehan NP / [id number] CC: MD BHAVNA Valdovinos PATRICIA L
--- NOTE | ~2016-05-30 | HP ---
History And Physical [place] [address] [facility] [place]. [address] NAME: FLORENCIO FINK : 63 STATUS : ADM IN [facility]#: [id number] AGE: 50 ADM/REG DATE : 05/30/16 MR#: [id number] REPORT SERV DATE: 05/31/16 DICTATED BY: ORALIA WHATLEY DATE: 05/30/16 REPORT STATUS : Draft TRANSCRIBED BY: MODL DATE: 05/30/16 DATE OF ADMISSION: 05/30/2016 CHIEF COMPLAINT: A 50-year-old female with recurrent metastatic appendiceal cancer, now presenting with extreme abdominal pain and uncontrolled vomiting. HISTORY OF PRESENT ILLNESS: The patient's history was obtained through careful interview with the patient and mother coupled with review of [facility] medical records and medical records obtained from [facility]. The patient was first diagnosed with appendiceal cancer in 2013. She underwent significant surgical resection and had "negative margins" at that time but also underwent chemotherapy. Unfortunately, just within this last month, the patient had known recurrence of disease as evidenced on biopsy of her omentum. She has also developed what appears to be a right adnexal mass which may be related to this as well. She really began to feel sick around 02/2016 with increasing abdominal pain, nausea, and just feeling "ill." She had about a 10-pound weight loss over the last three months. On 05/24/2016, she also had developed right flank discomfort, was found to have right hydronephrosis, and then had a ureteral stent placed under the care of Dr. Chapman, urologist. She describes right lower quadrant abdominal discomfort that has only increased over the last week. It radiates to the epigastric area and across the lower portion of her abdomen. Is a sharp, continuous, dull quality pain that gets up to 20/10 in severity and never fully remits. She has had nausea and uncontrolled vomiting as well. She feels no bloating of the abdomen. No diarrhea. No fevers or chills. No shortness of breath. No chest pain. She does feel occasionally lightheaded. No confusion. No headache. No rash. She has noticed dark urine with little urine flow. REVIEW OF SYSTEMS: Otherwise, all 14-point review of systems was obtained and was negative. PAST MEDICAL HISTORY: 1. Appendiceal cancer as mentioned in the HPI, followed by Dr. Reynoso. 2. Neuropathy. 3. Nephrolithiasis. 4. Migraine headaches. History And Physical [address] [address] NAME: FLORENCIO FINK : 63 STATUS : ADM IN [facility]#: [id number] AGE: 50 ADM/REG DATE : 05/30/16 MR#: [id number] REPORT SERV DATE: 05/31/16 DICTATED BY: ORALIA WHATLEY DATE: 05/30/16 REPORT STATUS : Draft TRANSCRIBED BY: YARA DATE: 05/30/16 5. Depression/anxiety. 6. Right hydronephrosis with stent placement under the care of Dr. Chapman. 7. Urinary tract infection. 8. No cardiac disease. No asthma or lung disease. PAST SURGICAL HISTORY: 1. Appendectomy. 2. Right hemicolectomy. 3. Small-bowel resection. 4. Cholecystectomy. ALLERGIES: TO PENICILLIN. SOCIAL HISTORY: Quit smoking about two years ago. Occasional alcohol use. She is , was remarried, but now from her current . Her children are grown. She has some grandchildren. 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 She now lives with her mother. FAMILY HISTORY: Mother and father with diabetes. Father of cancer. CURRENT MEDICATIONS: Include albuterol inhaler, eye drops, vitamin D, vitamin B12, Pepcid, fentanyl patch, Neurontin 300 mg p.o. t.i.d., milk of magnesia, fish oil, Percocet p.r.n., Phenergan p.r.n., and tramadol p.r.n. PHYSICAL EXAMINATION: VITAL SIGNS: Temperature 98.0, pulse 147, blood pressure 150/116, respiratory rate, and O2 saturation 96% on room air. GENERAL: An ill-appearing female mostly from distress from her extreme abdominal discomfort. HEENT: Pupils are equal, round, and reactive to light. No conjunctival pallor. No scleral icterus. Nares are patent. Oropharynx is clear of obstruction. Moist mucous membranes. NECK: Trachea midline. No thyromegaly. LYMPHS: No cervical lymphadenopathy. No supraclavicular lymphadenopathy. RESPIRATORY: Clear to auscultation at bases. No wheezes, rales, or rhonchi. Normal respiratory effort. CARDIOVASCULAR: Tachycardic. Regular rhythm. No murmurs, rubs, or gallops. No extremity edema is appreciated. ABDOMEN: Exquisitely tender by exam, really throughout, but more specifically in the right lower quadrant and right mid quadrant. There is significant guarding. There is no rebound effect, however. No specific flank tenderness. The patient has a nondistended abdomen. No hepatosplenomegaly. DERMATOLOGIC: Warm and dry extremities. No pallor. No cyanosis. PSYCHIATRIC: Normal affect. Good mood. Alert and oriented x3. LABORATORY DATA: White blood count 14.4, increased from 6.0 just within the last week. Hemoglobin 14, hematocrit 42, and platelets 436. Calcium 11.9, lipase 163, AST 57, ALT 101, and alkaline phosphatase 231. Urinalysis shows red blood cells, 26 white blood cells, but no overt signs of infection it seems. Sodium 140, potassium 3.9, chloride 106, bicarb 18, History And Physical [address] [address] NAME: FLORENCIO FINK : 63 STATUS : ADM IN [facility]#: [id number] AGE: 50 ADM/REG DATE : 05/30/16 MR#: [id number] REPORT SERV DATE: 05/31/16 DICTATED BY: ORALIA WHATLEY DATE: 05/30/16 REPORT STATUS : Draft TRANSCRIBED BY: YARA DATE: 05/30/16 BUN 16 creatinine 2.99, and glucose 158. STUDIES: 1. EKG, by my own evaluation, shows sinus tachycardia, left ventricular hypertrophy. 2. CT scan of the abdomen shows right adnexal mass that predominates, 8.8 x 6.5 cm in size, there is also omental disease that seems to demonstrate significant metastatic disease. ASSESSMENT AND PLAN: 1. Uncontrolled abdominal pain with 20/10 pain as she describes it. We will place on a STRATEGIC ACCOUNTS MANAGER Dilaudid IV for now. 2. Metastatic appendiceal cancer, consult Dr. Reynoso. I discussed the case in the emergency department with him. 3. Systemic inflammatory response syndrome with tachycardia, tachypnea. White blood cell count of 14.4, that is quite elevated from 6.0 just within the last week. We will check blood cultures. Check procalcitonin. Place on IV cefepime for now. 4. Right ureteral stent, stable by CT scan. No overt evidence of urinary tract infection. 5. Hypercalcemia, we will place on aggressive IV fluids for now. Consider pamidronate? Check ionized calcium. KPL/MODL Oralia Whatley M.D. / [id number] CC: MD OMAR Tran M.D. Stephen Depasquale, M.D.
--- NOTE | ~2016-05-30 | IDS ---
Interim Discharge Summary [facility] [address] [place]. [address] NAME: FLORENCIO FINK : 63 STATUS : ADM IN PAT#: [id number] AGE: 50 ADM/REG DATE : 05/30/16 MR#: [id number] REPORT SERV DATE: 06/10/16 DICTATED BY: NORM ARROYO II DATE: 06/09/16 REPORT STATUS : Draft TRANSCRIBED BY: MODL DATE: 06/09/16 ADMISSION DATE: 05/30/2016 DISCHARGE DATE: DATE OF INTERIM: 06/09/2016. INTERIM DIAGNOSES: 1. Metastatic appendiceal cancer. 2. Severe chronic pain secondary to the above. 3. Nausea and vomiting. 4. Opiate-induced constipation. 5. Hypercalcemia secondary to primary hyperparathyroidism, improved with pamidronate and fluids. 6. History of nephrolithiasis. 7. Right ureteral stent. CONSULTATIONS: 1. Dr. Hilton with Palliative Care. 2. Dr. Thompson, Surgery. 3. Dr. Hilton, Surgery. PROCEDURES: Port-A-Cath placement. BRIEF HISTORY OF PRESENT ILLNESS: The patient is a 50-year-old female with the above history, who presented to [facility] due to severe abdominal pain and uncontrolled vomiting. For detailed history and physical examination, please see Dr. Parr's note from 05/30/2016. HOSPITAL COURSE: On admission, the patient was given IV fluids, Dilaudid DRILLING CONTRACTOR, and Palliative Care was consulted. She has had a fairly long course and has been a slow wean off the Dilaudid DRILLING CONTRACTOR, though she has been off for several days and converted over to an oral regimen per Dr. Hilton. Currently, she is getting Percocet 10/325 one to two tablets up to four times a day. If she exceeds eight tablets in a 24-hour period, she can use oral Dilaudid. She is also receiving Ultram and still has some pain, but much better, and for the most part, relatively well controlled. At this point, the patient's main limiting factor is her nausea, anorexia, and recurrent vomiting. Currently, she is on scheduled Reglan and Zofran with p.r.n. Phenergan. I have also started Marinol and will now try Decadron as she seemed to gain weight with it last time. It is uncertain what is exactly driving the patient's severe nausea. She has had hypercalcemia secondary to her hyperparathyroidism with PTH of 205. This is improved with pamidronate and IV fluids, though still nauseous despite bringing the calcium down. She had a small-bowel follow-through, as she has had occasional intermittent constipation. Her small bowel follow-through showed numerous prominent loops of small intestine with no definite obstruction. The transit time to the colon was 7 hours. She does have some degree of delayed intestinal transit. I am hoping for some improvement with her current regimen with the addition of steroids and increase in Marinol. The patient's family is also encouraging her to try and eat as much as she can, though continues to vomit and eat very little. Currently, she is only wanting to try full liquids. Interim Discharge Summary [address] [address] NAME: FLORENCIO FINK : 63 STATUS : ADM IN PAT#: [id number] AGE: 50 ADM/REG DATE : 05/30/16 MR#: [id number] REPORT SERV DATE: 06/10/16 DICTATED BY: NORM ARROYO II DATE: 06/09/16 REPORT STATUS : Draft TRANSCRIBED BY: YARA DATE: 06/09/16 Disposition currently pending improvement in ability to tolerate p.o. Dr. Roger Medina will take over the patient's care starting tomorrow. JASSI/YARA Norm Arroyo II, MD / [id number]
--- NOTE | ~2016-05-30 | OP ---
Record Of Operation [facility] [address] [place]. [address] NAME: FLORENCIO FINK : 63 STATUS : ADM IN PAT#: [id number] AGE: 50 ADM/REG DATE : 05/30/16 MR#: [id number] REPORT SERV DATE: 06/04/16 DICTATED BY: ADA THOMPSON DATE: 06/04/16 REPORT STATUS : Draft TRANSCRIBED BY: MODL DATE: 06/04/16 DATE OF PROCEDURE: 06/03/2016 SURGEON: Ada Thompson MD PROCEDURE: 1. Port-A-Cath placement. 2. Ultrasound for placement of needle in central vein. 3. Fluoroscopy for manipulation of catheter in central vein. COMPLICATIONS: None. SPECIMENS: None. IV FLUIDS: Per Anesthesia record. ESTIMATED BLOOD LOSS: Minimal. FINDINGS: The patient had an extremely small internal jugular vein on the right, however, there was no clot. At the conclusion of the procedure, the accessed port marisabel and flushed easily and fluoroscopy confirmed it was in good position without kinking. PROCEDURE IN DETAIL: Preoperatively, the patient was definitively identified in the holding area. It was confirmed that a signed consent was on chart. The patient was then transferred to the operating room and placed supine on the operating room table with both arms tucked. After appropriate surgical pause, heavy sedation was administered by Anesthesia Team. The patient was prepped and draped in normal sterile fashion. Antibiotics were given. After prepping and draping again in normal sterile fashion. We used ultrasound to interrogate the right internal jugular vein with findings as mentioned above. The patient was placed in steep Trendelenburg position and enlarged enough that I thought I could get a catheter in. The skin overlying the area was infused with local anesthetic. A transverse 5 mm incision was performed sharply with a scalpel. A needle was used under ultrasound guidance to access the right internal jugular vein. The wire was passed in standard fashion and a picture was taken with ultrasound to verify correct placement of the wire within the vein. This was placed on the chart. The needle was then removed and the patient was placed in steep reverse Trendelenburg position and pressure was held over the neck. Additional local anesthetic was infused over the prior Port-A-Cath placement site in the right chest. We also infused local anesthetic along the intended tunneling site. A transverse 4 cm incision was performed sharply and pockets were created. Hemostasis was verified. The catheter was then tunneled from inferiorly to superiorly in standard fashion. The dilator was used in standard fashion and the catheter was placed through the dilator to about 20 cm. Fluoroscopy was used to manipulate it back to about 18 cm where it laid medially at the cavoatrial junction without twisting. We trimmed the catheter to correct length and attached the Port-A-Cath in standard fashion with the supplied grommet. Of note, because the patient previously had problems with twisting of her Record Of Operation [address] [place]. [address] NAME: FLORENCIO FINK : 63 STATUS : ADM IN PAT#: [id number] AGE: 50 ADM/REG DATE : 05/30/16 MR#: [id number] REPORT SERV DATE: 06/04/16 DICTATED BY: ADA THOMPSON DATE: 06/04/16 REPORT STATUS : Draft TRANSCRIBED BY: YARA DATE: 06/04/16 Port-A-Cath, we used three 2-0 Prolene sutures to tack down the three points of the Port-A- Cath. It laid in the pocket without twisting or tension. It marisabel and flushed easily. We took a final fluoroscopic image. We then closed the dermis with interrupted 3-0 Vicryl suture in buried fashion. The skin of both incision was closed with 4-0 Monocryl followed by Dermabond. The Port-A-Cath was accessed with the supplied Juarez needle and it again marisabel and flushed easily. It was held in place loosely with gauze and tape, and the patient returned to the supine position, and back to postanesthesia care in stable condition. There were no intraoperative complications. I was present for entire procedure. ECN/MODL Ada Thompson MD / [id number] CC: MD BHAVNA Thomas II, PATRICIA L
--- NOTE | ~2016-05-30 | CN ---
Consultation Report [facility] [address] [place]. [address] NAME: FLORENCIO FINK : 63 STATUS : ADM IN [facility]#: [id number] AGE: 50 ADM/REG DATE : 05/30/16 MR#: [id number] REPORT SERV DATE: 06/02/16 DICTATED BY: PRECIOUS HILTON DATE: 06/02/16 REPORT STATUS : Draft TRANSCRIBED BY: MODL DATE: 06/02/16 CONSULTATION REPORT DATE OF CONSULTATION: 06/02/2016 REASON FOR CONSULTATION: Port-A-Cath placement. HISTORY OF PRESENT ILLNESS: Ms Fink is a 50-year-old woman who has a history of right hemicolectomy performed by Dr. Hernandez two years ago for appendiceal cancer. She had a Port- A-Cath placed by Dr. Silva. She received her treatment and then had the port removed this past October. She has now returned with abdominal pain and is found to have recurrence of her cancer. She is in need of additional treatment and requested an additional Port-A- Cath. PAST MEDICAL HISTORY: Includes metastatic appendiceal adenocarcinoma and uterine fibroids. PAST SURGICAL HISTORY: Right hemicolectomy, small bowel resection, and cholecystectomy. MEDICATIONS: Include albuterol, Lumigan, vitamin D, vitamin B12, Pepcid, Duragesic patch 25 mcg/hour, Neurontin, milk of magnesia, omega-3 fatty acids, Percocet, Phenergan, and tramadol. ALLERGIES: PENICILLIN, WHICH CAUSED CARDIAC ARREST WHEN SHE WAS [age] YEARS OF AGE. SOCIAL HISTORY: She is a former smoker. She denies alcohol or drugs. FAMILY HISTORY: Her biological father had cancer, but no details were given. REVIEW OF SYSTEMS: A comprehensive 12-point review of systems was obtained and is negative except for that listed in the history of present illness. PHYSICAL EXAMINATION: VITAL SIGNS: Blood pressure 114/77, heart rate is 100, sat 93%, and temperature 98.6. GENERAL: She is in no acute distress, alert and oriented x3. HEENT: Normocephalic and atraumatic. Pupils are equal, round, and reactive to light. No scleral icterus. CHEST: She has a well-healed surgical scar in the right subclavian area from previous Port- A-Cath, otherwise, clear to auscultation bilaterally. CARDIOVASCULAR: Mildly tachycardic with a regular rhythm. ABDOMEN: Soft, mildly distended, and mildly tender. No peritonitis. EXTREMITIES: Well perfused. No edema. LABORATORY VALUES: White count 2.9, hematocrit 30.1, and platelets 236. Sodium 144, Consultation Report [facility] [id number] [place]. [address] NAME: FLORENCIO FINK : 63 STATUS : ADM IN PAT#: [id number] AGE: 50 ADM/REG DATE : 05/30/16 MR#: [id number] REPORT SERV DATE: 06/02/16 DICTATED BY: PRECIOUS HILTON DATE: 06/02/16 REPORT STATUS : Draft TRANSCRIBED BY: MODL DATE: 06/02/16 potassium 4.1, chloride 110, bicarb 22, BUN 14, creatinine 0.8, glucose 101, calcium is 10.6, and magnesium 1.7. Albumin is 2.5. INR on 05/31/2016 was 1.1. ASSESSMENT AND PLAN: Ms Fink is a 50-year-old woman with recurrent metastatic adenocarcinoma of the appendix. She is in need of a Port-A-Cath for resumption of chemotherapy. I have discussed this procedure with her with the risks including bleeding, infection requiring removal of the port, malfunction of the port. She expressed understanding and wished to proceed. Dr. Silva is out of town and I will be heading out of the town with in the morning, therefore, I have asked Dr. Thompson to perform her Port-A- Cath tomorrow. We will make her n.p.o. after midnight and permit for Port-A-Cath. Thank you very much for this consult. BRODERICK/YARA Precious Hilton MD / [id number] CC: MD BHAVNA Valdovinos PATRICIA L
[2016-05-30 13:12] LABS: BASOPHILS 0.2 %; BASOPHILS ABSOLUTE 0.03 10/3/uL (0.0-0.16); EOSINOPHILS 0.6 %; EOSINOPHILS ABSOLUTE 0.09 10/3/uL (0.0-0.53); IMMATURE GRANULOCYTES 0.3 %; IMMATURE GRANULOCYTES ABSOLUTE 0.04 10/3/uL (0.0-0.11); LYMPHOCYTES 13.1 %; LYMPHOCYTES ABSOLUTE 1.89 10/3/uL (0.67-4.30); MEAN CORPUS HGB CONC 34.6 g/dL (32.0-36.0); MEAN CORPUSCULAR HEMOGLOB 32.4 pg (26.0-34.0); MEAN CORPUSCULAR VOLUME 93.5 fL (80-100); MEAN PLATELET VOLUME 10.5 fL (9.2-13.0); MONOCYTES 6.4 %; MONOCYTES ABSOLUTE 0.92 10/3/uL (0.21-1.20); NEUTROPHILS 79.4 %; NEUTROPHILS ABSOLUTE 11.42 10/3/uL (2.02-8.40); RBC DISTRIBUTION WIDTH 12.5 % (12.0-16.0)
[2016-05-30 13:13] LABS: ER CBC TAT 0 Hrs 05 Mins; HEMATOCRIT 41.9 % (36.0-48.0); HEMOGLOBIN 14.5 g/dL (12.0-16.0); MANUAL DIFF NO %; PLATELET COUNT 436 10/3/uL (150-400); RED CELL COUNT 4.48 10/6/uL (4.0-5.6); WHITE BLOOD CELLS 14.4 10/3/uL (4.5-10.5)
[2016-05-30 13:27] LABS: ASCORBIC ACID (UR NOT ORDER) NEG (NEG); BILIRUBIN, URINE NEGATIVE (NEG); ER URINALYSIS TAT 0 Hrs 19 Mins; KETONE, URINE 80 MG/DL (NEG); LEUKOCYTE ESTERASE(NOT OR SMALL (NEG); NITRITE (URINE) NEG (NEG); WBC (NOT ORDERED) (RFLEX) 26 (0-5)
[2016-05-30 13:33] LABS: CHLORIDE, SERUM 106 MMOL/L (96-112); CREATININE 0.99 MG/DL (0.55-1.02); GFR AFRICAN AMERICAN 76 ML/MIN (>=60); GFR NON AFRICAN AMERICAN 66 ML/MIN (>=60); POTASSIUM, SERUM 3.9 MMOL/L (3.5-5.3); SGOT(AST) 57 U/L (5-40); SGPT(ALT) 101 U/L (5-65); SODIUM, SERUM 140 MMOL/L (135-148)
[2016-05-30 13:34] LABS: ALBUMIN 3.9 G/DL (3.5-5.0); ALKALINE PHOSPHATASE 231 U/L (45-117); BUN (BLOOD UREA NITROGEN) 16 MG/DL (6-23); CALCIUM, SERUM 11.9 MG/DL (8.5-10.4); CO2 (CARBON DIOXIDE) 18 MMOL/L (24-34); GLOBULIN 3.9 G/DL (2.5-4.1); GLUCOSE, SERUM 158 MG/DL (60-99); TOTAL PROTEIN 7.8 G/DL (6.0-8.5)
[~2016-05-30 16:35] MED LIST changes: +ENDOCET1 TA3 PO; +MOMUD PO; +PEP20 PO; +PR25 PO; +PROAIR HFA INH; +ULTRAM50 PO
[2016-05-30] MEDS ORDERED: NEUR300 PO (21:05)
[2016-05-30] MEDS ORDERED: ULTRAM50 PO (21:06)
[2016-05-30] MEDS ORDERED: PR25 PO (21:07)
[2016-05-30] MEDS ORDERED: PERCOCET 10/3251 TAB PO (21:07)
[2016-05-30] MEDS ORDERED: DURA25 TOP (21:08)
[2016-05-30] MEDS ORDERED: PEP20 PO (21:10)
[2016-05-30] MEDS ORDERED: PROAIR HFA INH (21:12)
[2016-05-30] MEDS ORDERED: LUMIGAN OPH (21:12)
[2016-05-30] MEDS ORDERED: VITAMIN B-122500 MCG SL (21:13)
[2016-05-30] MEDS ORDERED: D 5000 PO (21:13)
[2016-05-30] MEDS ORDERED: MOMUD PO (21:15)
[2016-05-30] MEDS ORDERED: FISH OIL1200 MG PO (21:15)
[2016-05-31 08:30] LABS: BASOPHILS 0.2 %; BASOPHILS ABSOLUTE 0.02 10/3/uL (0.0-0.16); EOSINOPHILS 1.4 %; EOSINOPHILS ABSOLUTE 0.12 10/3/uL (0.0-0.53); IMMATURE GRANULOCYTES 0.2 %; IMMATURE GRANULOCYTES ABSOLUTE 0.02 10/3/uL (0.0-0.11); LYMPHOCYTES 22.6 %; LYMPHOCYTES ABSOLUTE 1.93 10/3/uL (0.67-4.30); MEAN CORPUS HGB CONC 33.5 g/dL (32.0-36.0); MEAN CORPUSCULAR HEMOGLOB 32.1 pg (26.0-34.0); MEAN CORPUSCULAR VOLUME 95.7 fL (80-100); MONOCYTES ABSOLUTE 1.11 10/3/uL (0.21-1.20); NEUTROPHILS 62.6 %; NEUTROPHILS ABSOLUTE 5.35 10/3/uL (2.02-8.40); RED CELL COUNT 3.74 10/6/uL (4.0-5.6)
[2016-05-31 08:31] LABS: HEMATOCRIT 35.8 % (36.0-48.0); MANUAL DIFF NO %; PLATELET COUNT 305 10/3/uL (150-400); WHITE BLOOD CELLS 8.6 10/3/uL (4.5-10.5)
[2016-05-31 08:37] LABS: INTERNATIONAL NORMAL RATI 1.1 UNITS (-); PROTIME (NOT ORD) 13.8 SEC (12.0-14.5)
[2016-05-31 09:09] LABS: A/G RATIO 0.9 (0.7-1.9); ALKALINE PHOSPHATASE 176 U/L (45-117); BUN (BLOOD UREA NITROGEN) 13 MG/DL (6-23); CALCIUM, SERUM 10.5 MG/DL (8.5-10.4); CHLORIDE, SERUM 113 MMOL/L (96-112); CO2 (CARBON DIOXIDE) 24 MMOL/L (24-34); GFR AFRICAN AMERICAN 67 ML/MIN (>=60); GFR NON AFRICAN AMERICAN 58 ML/MIN (>=60); GLOBULIN 3.3 G/DL (2.5-4.1); GLUCOSE, SERUM 108 MG/DL (60-99); POTASSIUM, SERUM 3.5 MMOL/L (3.5-5.3); PREALBUMIN 19.5 MG/DL (17.0-43.0); SGOT(AST) 48 U/L (5-40); SGPT(ALT) 79 U/L (5-65); SODIUM, SERUM 145 MMOL/L (135-148); TOTAL BILIRUBIN 0.7 MG/DL (0-1.2); TOTAL PROTEIN 6.3 G/DL (6.0-8.5)
[2016-06-01 07:00] LABS: BASOPHILS 0.2 %; BASOPHILS ABSOLUTE 0.01 10/3/uL (0.0-0.16); EOSINOPHILS 2.8 %; EOSINOPHILS ABSOLUTE 0.12 10/3/uL (0.0-0.53); HEMOGLOBIN 10.2 g/dL (12.0-16.0); LYMPHOCYTES 18.4 %; LYMPHOCYTES ABSOLUTE 0.79 10/3/uL (0.67-4.30); MEAN CORPUSCULAR HEMOGLOB 32.3 pg (26.0-34.0); MEAN CORPUSCULAR VOLUME 94.9 fL (80-100); MONOCYTES 10.5 %; MONOCYTES ABSOLUTE 0.45 10/3/uL (0.21-1.20); NEUTROPHILS 68.1 %; NEUTROPHILS ABSOLUTE 2.92 10/3/uL (2.02-8.40); PLATELET COUNT 247 10/3/uL (150-400); RBC DISTRIBUTION WIDTH 12.9 % (12.0-16.0); RED CELL COUNT 3.16 10/6/uL (4.0-5.6)
[2016-06-01 07:01] LABS: MANUAL DIFF NO %; WHITE BLOOD CELLS 4.3 10/3/uL (4.5-10.5)
[2016-06-01 07:12] LABS: A/G RATIO 0.9 (0.7-1.9); ALBUMIN 2.5 G/DL (3.5-5.0); ALKALINE PHOSPHATASE 152 U/L (45-117); BUN (BLOOD UREA NITROGEN) 8 MG/DL (6-23); CALCIUM, SERUM 10.7 MG/DL (8.5-10.4); CHLORIDE, SERUM 112 MMOL/L (96-112); CO2 (CARBON DIOXIDE) 25 MMOL/L (24-34); CREATININE 0.99 MG/DL (0.55-1.02); GFR AFRICAN AMERICAN 76 ML/MIN (>=60); GFR NON AFRICAN AMERICAN 66 ML/MIN (>=60); GLOBULIN 2.9 G/DL (2.5-4.1); GLUCOSE, SERUM 107 MG/DL (60-99); POTASSIUM, SERUM 3.8 MMOL/L (3.5-5.3); SGOT(AST) 29 U/L (5-40); SGPT(ALT) 56 U/L (5-65); SODIUM, SERUM 146 MMOL/L (135-148); TOTAL BILIRUBIN 0.4 MG/DL (0-1.2); TOTAL PROTEIN 5.4 G/DL (6.0-8.5)
[2016-06-02 04:14] LABS: BASOPHILS 0.4 %; BASOPHILS ABSOLUTE 0.01 10/3/uL (0.0-0.16); EOSINOPHILS 2.1 %; EOSINOPHILS ABSOLUTE 0.06 10/3/uL (0.0-0.53); HEMATOCRIT 30.1 % (36.0-48.0); HEMOGLOBIN 10.2 g/dL (12.0-16.0); LYMPHOCYTES 27.4 %; LYMPHOCYTES ABSOLUTE 0.78 10/3/uL (0.67-4.30); MEAN CORPUS HGB CONC 33.9 g/dL (32.0-36.0); MEAN CORPUSCULAR HEMOGLOB 31.8 pg (26.0-34.0); MEAN CORPUSCULAR VOLUME 93.8 fL (80-100); MONOCYTES 8.8 %; MONOCYTES ABSOLUTE 0.25 10/3/uL (0.21-1.20); NEUTROPHILS 61.3 %; NEUTROPHILS ABSOLUTE 1.75 10/3/uL (2.02-8.40); PLATELET COUNT 236 10/3/uL (150-400); RBC DISTRIBUTION WIDTH 12.5 % (12.0-16.0); RED CELL COUNT 3.21 10/6/uL (4.0-5.6); WHITE BLOOD CELLS 2.9 10/3/uL (4.5-10.5)
[2016-06-02 04:15] LABS: MANUAL DIFF NO %
[2016-06-02 04:31] LABS: CALCIUM, SERUM 10.6 MG/DL (8.5-10.4); CHLORIDE, SERUM 110 MMOL/L (96-112); CO2 (CARBON DIOXIDE) 22 MMOL/L (24-34); GFR AFRICAN AMERICAN 99 ML/MIN (>=60); GFR NON AFRICAN AMERICAN 85 ML/MIN (>=60); GLUCOSE, SERUM 101 MG/DL (60-99); POTASSIUM, SERUM 3.3 MMOL/L (3.5-5.3); SODIUM, SERUM 144 MMOL/L (135-148)
[2016-06-02 04:33] LABS: BUN (BLOOD UREA NITROGEN) 14 MG/DL (6-23)
[2016-06-03 06:12] LABS: BASOPHILS 0.2 %; BASOPHILS ABSOLUTE 0.01 10/3/uL (0.0-0.16); EOSINOPHILS 2.7 %; EOSINOPHILS ABSOLUTE 0.11 10/3/uL (0.0-0.53); HEMATOCRIT 33.1 % (36.0-48.0); HEMOGLOBIN 11.3 g/dL (12.0-16.0); IMMATURE GRANULOCYTES 0.2 %; IMMATURE GRANULOCYTES ABSOLUTE 0.01 10/3/uL (0.0-0.11); LYMPHOCYTES 34.3 %; LYMPHOCYTES ABSOLUTE 1.39 10/3/uL (0.67-4.30); MEAN CORPUS HGB CONC 34.1 g/dL (32.0-36.0); MEAN CORPUSCULAR HEMOGLOB 32.2 pg (26.0-34.0); MEAN CORPUSCULAR VOLUME 94.3 fL (80-100); MEAN PLATELET VOLUME 10.1 fL (9.2-13.0); MONOCYTES 15.6 %; MONOCYTES ABSOLUTE 0.63 10/3/uL (0.21-1.20); PLATELET COUNT 272 10/3/uL (150-400); RBC DISTRIBUTION WIDTH 12.8 % (12.0-16.0); RED CELL COUNT 3.51 10/6/uL (4.0-5.6)
[2016-06-03 06:14] LABS: MANUAL DIFF NO %; WHITE BLOOD CELLS 4.1 10/3/uL (4.5-10.5)
[2016-06-03 06:25] LABS: BUN (BLOOD UREA NITROGEN) 13 MG/DL (6-23); CALCIUM, SERUM 11.5 MG/DL (8.5-10.4); CHLORIDE, SERUM 109 MMOL/L (96-112); CREATININE 0.82 MG/DL (0.55-1.02); GFR AFRICAN AMERICAN 96 ML/MIN (>=60); GFR NON AFRICAN AMERICAN 83 ML/MIN (>=60); GLUCOSE, SERUM 107 MG/DL (60-99); POTASSIUM, SERUM 4.1 MMOL/L (3.5-5.3); SODIUM, SERUM 143 MMOL/L (135-148)
[2016-06-03 06:26] LABS: CO2 (CARBON DIOXIDE) 27 MMOL/L (24-34)
[2016-06-04 06:23] LABS: CHLORIDE, SERUM 110 MMOL/L (96-112); CO2 (CARBON DIOXIDE) 24 MMOL/L (24-34); CREATININE 0.79 MG/DL (0.55-1.02); GFR AFRICAN AMERICAN 100 ML/MIN (>=60); GFR NON AFRICAN AMERICAN 87 ML/MIN (>=60); GLUCOSE, SERUM 115 MG/DL (60-99); POTASSIUM, SERUM 4.7 MMOL/L (3.5-5.3); SODIUM, SERUM 143 MMOL/L (135-148)
[2016-06-04 06:28] LABS: BUN (BLOOD UREA NITROGEN) 9 MG/DL (6-23); CALCIUM, SERUM 10.4 MG/DL (8.5-10.4)
[2016-06-06 08:08] LABS: BUN (BLOOD UREA NITROGEN) 18 MG/DL (6-23); CALCIUM, SERUM 9.3 MG/DL (8.5-10.4); CHLORIDE, SERUM 110 MMOL/L (96-112); CO2 (CARBON DIOXIDE) 23 MMOL/L (24-34); CREATININE 0.71 MG/DL (0.55-1.02); GFR AFRICAN AMERICAN 114 ML/MIN (>=60); GFR NON AFRICAN AMERICAN 99 ML/MIN (>=60); GLUCOSE, SERUM 82 MG/DL (60-99); POTASSIUM, SERUM 4.3 MMOL/L (3.5-5.3); SODIUM, SERUM 142 MMOL/L (135-148)
[2016-06-07 04:16] LABS: BASOPHILS 0.4 %; BASOPHILS ABSOLUTE 0.02 10/3/uL (0.0-0.16); EOSINOPHILS 1.9 %; EOSINOPHILS ABSOLUTE 0.11 10/3/uL (0.0-0.53); HEMATOCRIT 35.7 % (36.0-48.0); HEMOGLOBIN 11.8 g/dL (12.0-16.0); IMMATURE GRANULOCYTES 0.2 %; IMMATURE GRANULOCYTES ABSOLUTE 0.01 10/3/uL (0.0-0.11); LYMPHOCYTES 29.9 %; MEAN CORPUS HGB CONC 33.1 g/dL (32.0-36.0); MEAN CORPUSCULAR HEMOGLOB 31.5 pg (26.0-34.0); MEAN CORPUSCULAR VOLUME 95.2 fL (80-100); MEAN PLATELET VOLUME 10.3 fL (9.2-13.0); MONOCYTES 11.2 %; MONOCYTES ABSOLUTE 0.64 10/3/uL (0.21-1.20); NEUTROPHILS 56.4 %; NEUTROPHILS ABSOLUTE 3.21 10/3/uL (2.02-8.40); PLATELET COUNT 317 10/3/uL (150-400); RBC DISTRIBUTION WIDTH 13.6 % (12.0-16.0); RED CELL COUNT 3.75 10/6/uL (4.0-5.6); WHITE BLOOD CELLS 5.7 10/3/uL (4.5-10.5)
[2016-06-07 04:18] LABS: MANUAL DIFF NO %
[2016-06-07 04:29] LABS: CHLORIDE, SERUM 112 MMOL/L (96-112); CO2 (CARBON DIOXIDE) 20 MMOL/L (24-34); CREATININE 0.68 MG/DL (0.55-1.02); GFR AFRICAN AMERICAN 117 ML/MIN (>=60); GFR NON AFRICAN AMERICAN 101 ML/MIN (>=60); GLUCOSE, SERUM 87 MG/DL (60-99); SODIUM, SERUM 143 MMOL/L (135-148)
[2016-06-07 04:32] LABS: BUN (BLOOD UREA NITROGEN) 13 MG/DL (6-23)
[2016-06-08 05:03] LABS: CALCIUM, SERUM 8.9 MG/DL (8.5-10.4); CHLORIDE, SERUM 115 MMOL/L (96-112); CO2 (CARBON DIOXIDE) 18 MMOL/L (24-34); CREATININE 0.57 MG/DL (0.55-1.02); GFR AFRICAN AMERICAN 124 ML/MIN (>=60); GFR NON AFRICAN AMERICAN 107 ML/MIN (>=60); GLUCOSE, SERUM 80 MG/DL (60-99); POTASSIUM, SERUM 3.6 MMOL/L (3.5-5.3); SODIUM, SERUM 145 MMOL/L (135-148)
[2016-06-08 05:04] LABS: BUN (BLOOD UREA NITROGEN) 5 MG/DL (6-23)
[2016-06-09 05:22] LABS: BUN (BLOOD UREA NITROGEN) 8 MG/DL (6-23); CALCIUM, SERUM 9.5 MG/DL (8.5-10.4); CHLORIDE, SERUM 116 MMOL/L (96-112); CO2 (CARBON DIOXIDE) 14 MMOL/L (24-34); CREATININE 0.68 MG/DL (0.55-1.02); GFR AFRICAN AMERICAN 117 ML/MIN (>=60); GFR NON AFRICAN AMERICAN 101 ML/MIN (>=60); GLUCOSE, SERUM 83 MG/DL (60-99); POTASSIUM, SERUM 3.6 MMOL/L (3.5-5.3); SODIUM, SERUM 144 MMOL/L (135-148)
[2016-06-10 07:21] LABS: BUN (BLOOD UREA NITROGEN) 7 MG/DL (6-23); CALCIUM, SERUM 8.5 MG/DL (8.5-10.4); CHLORIDE, SERUM 118 MMOL/L (96-112); CO2 (CARBON DIOXIDE) 15 MMOL/L (24-34); CREATININE 0.61 MG/DL (0.55-1.02); GFR AFRICAN AMERICAN 122 ML/MIN (>=60); GFR NON AFRICAN AMERICAN 105 ML/MIN (>=60); GLUCOSE, SERUM 105 MG/DL (60-99); POTASSIUM, SERUM 4.3 MMOL/L (3.5-5.3); SODIUM, SERUM 144 MMOL/L (135-148)
[2016-06-11 06:17] LABS: BUN (BLOOD UREA NITROGEN) 7 MG/DL (6-23); CHLORIDE, SERUM 114 MMOL/L (96-112); CREATININE 0.69 MG/DL (0.55-1.02); GFR AFRICAN AMERICAN 117 ML/MIN (>=60); GFR NON AFRICAN AMERICAN 101 ML/MIN (>=60); GLUCOSE, SERUM 110 MG/DL (60-99); POTASSIUM, SERUM 3.8 MMOL/L (3.5-5.3); SODIUM, SERUM 145 MMOL/L (135-148)
[2016-06-11 06:18] LABS: CO2 (CARBON DIOXIDE) 19 MMOL/L (24-34)
== END 2016-06-12 20:12 | disposition hospice, home (50) | DRG 948 ==
LOC: ER 16:35 → 4SO 21:21
PROVIDERS: Emergency Medicine; Hospitalist; Internal Medicine; Internal Medicine Hematology & Oncology; Nurse Practitioner Adult Health; Surgery
PROC: 0JH60WZ Insertion of Totally Implantable Vascular Access Device into Chest Subcutaneous Tissue and Fascia, Open Approach (ICD-10-PCS; principal; 2016-06-03 10:45)
PROC: B548ZZA Ultrasonography of Superior Vena Cava, Guidance (ICD-10-PCS; principal; 2016-06-03 10:45)
PROC: 02HV33Z Insertion of Infusion Device into Superior Vena Cava, Percutaneous Approach (ICD-10-PCS; principal; 2016-06-03 10:45)
DX: G89.3 Neoplasm related pain (acute) (chronic) (principal); N17.9 Acute kidney failure, unspecified; C49.20 Malignant neoplasm of connective and soft tissue of unspecified lower limb, including hip; C78.6 Secondary malignant neoplasm of retroperitoneum and peritoneum; E87.2 Acidosis; C79.61 Secondary malignant neoplasm of right ovary; K56.7 Ileus, unspecified; C18.1 Malignant neoplasm of appendix; G62.9 Polyneuropathy, unspecified; F32.9 Major depressive disorder, single episode, unspecified; F41.9 Anxiety disorder, unspecified; K59.03 Drug induced constipation; R39.9 Unspecified symptoms and signs involving the genitourinary system; Z88.0 Allergy status to penicillin; Z87.891 Personal history of nicotine dependence; Z98.890 Other specified postprocedural states; Z90.49 Acquired absence of other specified parts of digestive tract; Z92.21 Personal history of antineoplastic chemotherapy; Z79.891 Long term (current) use of opiate analgesic; Z51.5 Encounter for palliative care; T40.2X5A Adverse effect of other opioids, initial encounter; E21.0 Primary hyperparathyroidism
CPT/HCPCS: 71010; 74022; 74176; 74250; 76000; 76856; 77001; 80048; 80053; 81001; 82310; 82330; 83605; 83690; 83735; 83970; 84132; 84134; 84145; 84443; 85025; 85610; 85730; 87086; 87493; 87493-59; 93005; 96374; 96375; 99285; A9270-GY; C1751; C9113; J0692; J1170; J2250; J2370; J2405; J2430; J2550; J3010; J3370; Q9967